=== PATIENT | female | born 1965 | race Caucasian/White ===

== ENCOUNTER → 2020-01-03 | Outpatient (CLI) | payer OTHER ==
[~2020-01-03] VITALS: Ht 160 cm; Wt 63.0 kg
[~2020-01-03] MED LIST: ADVIL COLD & S1 EAC1 PO; COLACE100 MG PO; FLEXERIL PO; MELOXICAM15 MG PO; MOM PO; NOHOMEMEDICATIONS; NORCO 5-325 TA1 EACH PO; ROBAXIN 750 MG750 M1 PO; SUDAFED30 MG PO; VITAMIN D1000 UNI1 PO
--- NOTE | ~2020-01-03 | HPC ---
[facility] [address] [address] PAIN MANAGEMENT CONSULTATION Name: JAZ HERNANDEZ Room #: [facility].#: [id number] Admission: 01/03/20 Attend Phys: Ulysses Almaguer MD Discharge: Date of : 61 Report #: [id number] THIS REPORT FOR: cc: Jose E Deng MD,Jose E Almaguer,Ulysses Hoang MD ~ CC: JOSE E Almaguer DATE OF SERVICE: 01/03/2020 CHIEF COMPLAINT: Bilateral hip and leg pain evolving and absent today. The patient is a pleasant 54-year-old who made an appointment to be seen today for radiculopathy. I saw her many years ago and she responded nicely to epidural injections. She then underwent a microdiskectomy by Dr. Jose Harry and did quite well for nearly 10 years. 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 This was then moved to the left of her hip and ultimately went to the right leg, radiating in a radicular fashion all the way down through the leg in the L5-S1 distribution. She describes it as periodic burning pain and at one point it was 10/10. She has taken off of work and the rest from work has helped, but she would like to return to work soon. If worsens she would like to return and is also fortunate that her pain today is scored at 0/10. She does not need current treatment. Medications for pain include hydrocodone. She has been given a small number of pills. She does not use it on a daily basis. ALLERGIES: None. PAST MEDICAL HISTORY: Positive for the laminectomy in 2010. She otherwise is in good health. SOCIAL HISTORY: . She does not smoke, but does enjoy an alcoholic beverage perhaps once a month or so. PHYSICAL EXAMINATION: GENERAL: She is a fit-appearing 54-year-old. VITAL SIGNS: Blood pressure is 141/84, heart rate 77, respirations 14, O2 sat 98. CHEST: Clear. CARDIAC: Rhythm regular. EXTREMITIES: She moves easily from sitting to [place] [address] PAIN MANAGEMENT CONSULTATION Name: JAZ HERNANDEZ Room #: [facility]#: [id number] Admission: 01/03/20 Attend Phys: Ulysses Almaguer MD Discharge: Date of : 61 Report #: [id number] quite nimble and without antalgic features. Mild tenderness across the low back. Straight leg raising is negative. Sensory and strength are also both negative as well. IMPRESSION: Recent episode of lumbar radiculopathy, post-laminectomy. This seems to have self-resolved. She does not need treatment. We discussed the possibility of an epidural steroid injection if pain returns. We will see her then. By: [id number] Ulysses Almaguer MD /edwin
[2020-01-03 13:39] VITALS: BP 141/84
--- NOTE | 2020-01-03 13:54 | NUR ---
Pain Clinic Assessment: 1. History of Osteoarthritis: NONE History of Rheumatoid Arthritis: NONE 2. Height: 5 ft. 3 in. 160.0 cm. Weight: 139.0 lb. oz. 63.050 kg. Patient's BMI: 24.6 3. Vital Signs: BP: 141/84 Pulse: 77 Resp: 14 Temp: 02 Sat: 98 ECG Mon: 4. Pain Intensity: 1-2 5. Fall Risk: Dizziness: N Needs help standing or walking: N Fallen in the last 3 months: N Fall risk comments: 6. Patient on Blood Thinner: None 7. History of Hypertension: N 8. Opioid Therapy greater than 6 weeks: N Opiate Contract Signed: 9. Risk Assessment Tool Provided: 0-LOW 10. Functional Assessment Tool: 11. Recreational Drug Use: Never Drug Type: Tobacco Use: Never Smoker Tobacco Type: Amount or Packs/day: How Many Years: Alcohol Use: Yes Frequency: Monthly Quant:
== END ==
LOC: PAIN 06:42
DX: M25.552 Pain in left hip (principal); M25.551 Pain in right hip; M79.605 Pain in left leg; M79.604 Pain in right leg; M96.1 Postlaminectomy syndrome, not elsewhere classified